=== PATIENT | female | born 1960 | race Caucasian/White ===

== ENCOUNTER 2018-06-09 18:43 | Emergency (ER) | payer MEDICARE, MEDICAID ==
[~2018-06-09] VITALS: Ht 157.5 cm; Wt 60.0 kg
[2018-06-09 20:24] LABS: BASOPHILS % (AUTO) 0.2 % (0-1); EOSINOPHILS # (AUTO) 0.2 X10'3 (0-0.9); EOSINOPHILS % (AUTO) 1.9 % (0-6); HEMATOCRIT 35.6 % (35.0-45.0); HEMOGLOBIN 11.6 g/dl (12.0-16.0); LYMPHOCYTES # (AUTO) 0.8 X10'3 (1.1-4.8); LYMPHOCYTES % (AUTO) 7.6 % (21-51); MEAN CORPUSCULAR HEMOGLOBIN 24.9 PG (27.0-31.0); MEAN CORPUSCULAR HGB CONC 32.5 % (33.0-36.5); MEAN CORPUSCULAR VOLUME 76.4 FL (78-98); MEAN PLATELET VOLUME 7.3 FL (7.4-10.4); MONOCYTES # (AUTO) 0.8 X10'3 (0-0.9); MONOCYTES % (AUTO) 7.2 % (2-12); NEUTROPHILS % (AUTO) 83.1 % (42-75); PLATELET COUNT 314 X10'3 (140-440); RED BLOOD COUNT 4.66 X10'6 (4.20-5.60); RED CELL DISTRIBUTION WIDTH 20.6 % (11.5-14.5); WHITE BLOOD COUNT 10.8 X10'3 (4.5-11.0)
[2018-06-09 20:34] LABS: PROTHROMBIN TIME 10.3 SECONDS (9.0-12.0)
[2018-06-09] MEDS ORDERED: pantoprazole 40 MG vial IV ONE (20:35)
[2018-06-09] MEDS ORDERED: normal saline 1000ML IV soln IVB ONE (20:35)
[2018-06-09] MEDS ORDERED: ondansetron/PF 4mg/2ml inj IV ONE (20:35)
[2018-06-09] MEDS ORDERED: ketorolac trometh. 30mg/ml inj. IV ONE (20:35)
[2018-06-09 20:56] LABS: AMYLASE 22 U/L (25-115)
[2018-06-09 20:58] LABS: ALANINE AMINOTRANSFERASE 12 U/L (12-78); ALBUMIN 3.3 G/DL (3.4-5.0); ALBUMIN/GLOBULIN RATIO 0.8 (1.1-1.5); ALKALINE PHOSPHATASE 168 IU/L (46-116); ANION GAP 8 (8-16); BILIRUBIN,TOTAL 1.2 MG/DL (0.1-1.0); BLOOD UREA NITROGEN 9 MG/DL (7-18); BUN/CREATININE RATIO 9.8 (6.6-38.0); CALCIUM 8.6 MG/DL (8.5-10.1); CHLORIDE 101 MMOL/L (99-107); CREATININE 0.92 MG/DL (0.40-0.90); GLUCOSE 128 MG/DL (70-104); LIPASE 130 U/L (73-393); POTASSIUM 3.3 MMOL/L (3.5-5.1); SODIUM 139 MMOL/L (135-145); TOTAL CARBON DIOXIDE 29.9 MMOL/L (24-32); TOTAL PROTEIN 7.7 G/DL (6.4-8.2); eGFR 63 ML/MIN
[2018-06-09 21:06] LABS: CLARITY,URINE CLEAR (Clear); COLOR,URINE YELLOW (Yellow); GLUCOSE, URINE NEGATIVE (Neg); KETONES,URINE TRACE mg/dl (Neg); LEUKOCYTE ESTERASE ,URINE SMALL (Neg); NITRITES, URINE NEGATIVE (Neg); OCCULT BLOOD,URINE NEGATIVE (Neg); PH,URINE 8.5 (4.8-8.0); PROTEIN,URINE 30 mg/dl (Neg); UROBILINOGEN,URINE 0.2 E.U/dL (0.2-1.0)
[2018-06-09 21:09] LABS: UA COLLECTION TYPE STRAIGHT CATH
[2018-06-09 21:09] LABS: ASPARTATE AMINO TRANSFERASE 27 U/L (10-37); ETHANOL < 0.010 GM/DL (0.0-0.010)
[2018-06-09 21:10] LABS: RBC,URINE 0-2 /HPF (0-2); URINE AMPHETAMINE SCREEN NEGATIVE (Neg); URINE BARBITUATE SCREEN NEGATIVE (Neg); URINE BENZODIAZEPINES SCREEN NEGATIVE (Neg); URINE CANNABINOID SCREEN NEGATIVE (Neg); URINE COCAINE SCREEN NEGATIVE (Neg); URINE METHADONE SCREEN NEGATIVE (Neg); URINE OPIATE SCREEN NEGATIVE (Neg); URINE PHENCYCLIDINE SCREEN NEGATIVE (Neg)
[2018-06-09 21:11] LABS: BACTERIA,URINE FEW /HPF (Neg); SQUAMOUS EPITHELIAL CELL,UR NONE SEEN /LPF (FEW)
[2018-06-09] MEDS ORDERED: normal saline 1000ml 1,000 ML IV ONE (22:50)
[2018-06-10] MEDS ORDERED: CefTRIAXone/D5W-Rocephin 1gm 50 ML IV ONE (02:35)
[2018-06-10 03:40] VITALS: BP 131/79
[2018-06-10] MEDS ORDERED: NITR100C6 PO (03:41)
[2018-06-10] MEDS ORDERED: ONDA8TAB9 PO (03:41)
== END 2018-06-10 03:48 | disposition home or self-care (01) ==
LOC: ER 18:44
DX: T62.91XA Toxic effect of unspecified noxious substance eaten as food, accidental (unintentional), initial encounter (principal); R11.10 Vomiting, unspecified; N39.0 Urinary tract infection, site not specified; Y92.89 Other specified places as the place of occurrence of the external cause
CPT/HCPCS: 36415; 71045; 74018; 76700; 80053; 80305; 80320; 81001; 82150; 83690; 85025; 85610; 87077; 87088; 87186; 93005; 96361; 96365; 96375; 99285; C9113; J0696; J1885; J2405; J7030

== ENCOUNTER 2018-06-25 01:30 | Emergency (ER) | payer MEDICARE, MEDICAID ==
[~2018-06-25] VITALS: Ht 157.5 cm; Wt 61.4 kg
[~2018-06-25 01:30] MED LIST: NITR100C6 PO; ONDA8TAB9 PO
[2018-06-25 02:16] LABS: BASOPHILS % (AUTO) 0.3 % (0-1); EOSINOPHILS # (AUTO) 0.2 X10'3 (0-0.9); EOSINOPHILS % (AUTO) 1.8 % (0-6); HEMATOCRIT 36.1 % (35.0-45.0); HEMOGLOBIN 11.6 g/dl (12.0-16.0); LYMPHOCYTES # (AUTO) 0.9 X10'3 (1.1-4.8); LYMPHOCYTES % (AUTO) 8.4 % (21-51); MEAN CORPUSCULAR HGB CONC 32.2 % (33.0-36.5); MEAN CORPUSCULAR VOLUME 77.6 FL (78-98); MEAN PLATELET VOLUME 7.9 FL (7.4-10.4); MONOCYTES # (AUTO) 0.6 X10'3 (0-0.9); MONOCYTES % (AUTO) 5.5 % (2-12); NEUTROPHILS # (AUTO) 9.1 X10'3 (1.8-7.7); PLATELET COUNT 333 X10'3 (140-440); RED BLOOD COUNT 4.65 X10'6 (4.20-5.60); RED CELL DISTRIBUTION WIDTH 19.1 % (11.5-14.5); WHITE BLOOD COUNT 10.8 X10'3 (4.5-11.0)
[2018-06-25 02:31] LABS: ALANINE AMINOTRANSFERASE 12 U/L (12-78); ALBUMIN 3.4 G/DL (3.4-5.0); ALBUMIN/GLOBULIN RATIO 0.8 (1.1-1.5); ALKALINE PHOSPHATASE 146 IU/L (46-116); ANION GAP 5 (8-16); ASPARTATE AMINO TRANSFERASE 28 U/L (10-37); BILIRUBIN,TOTAL 1.6 MG/DL (0.1-1.0); BLOOD UREA NITROGEN 6 MG/DL (7-18); BUN/CREATININE RATIO 7.4 (6.6-38.0); CHLORIDE 100 MMOL/L (99-107); CREATININE 0.81 MG/DL (0.40-0.90); GLUCOSE 121 MG/DL (70-104); POTASSIUM 3.2 MMOL/L (3.5-5.1); SODIUM 136 MMOL/L (135-145); TOTAL CARBON DIOXIDE 30.9 MMOL/L (24-32); TOTAL PROTEIN 7.8 G/DL (6.4-8.2); eGFR 73 ML/MIN
[2018-06-25 02:58] LABS: LIPASE 220 U/L (73-393)
[2018-06-25 03:20] LABS: ANISOCYTOSIS 2+; PLATELET ESTIMATE NORMAL
[2018-06-25 03:21] LABS: POLYCHROMASIA FEW
[2018-06-25 03:22] LABS: STOMATOCYTES 1+
[2018-06-25 03:27] LABS: CLARITY,URINE SLIGHTLY CLOUDY (Clear); COLOR,URINE YELLOW (Yellow); GLUCOSE, URINE NEGATIVE (Neg); KETONES,URINE TRACE mg/dl (Neg); LEUKOCYTE ESTERASE ,URINE TRACE (Neg); NITRITES, URINE NEGATIVE (Neg); OCCULT BLOOD,URINE NEGATIVE (Neg); PH,URINE >=9.0 (4.8-8.0); PROTEIN,URINE 30 mg/dl (Neg)
[2018-06-25 03:29] LABS: UA COLLECTION TYPE CLN CATCH MIDSTREAM
[2018-06-25 03:32] LABS: MUCUS STRANDS MODERATE /LPF (Neg); SQUAMOUS EPITHELIAL CELL,UR MODERATE /LPF (FEW)
[2018-06-25 03:33] LABS: BACTERIA,URINE FEW /HPF (Neg); RBC,URINE 0-2 /HPF (0-2); WBC,URINE 0-4 /HPF (0-4)
[2018-06-25] MEDS ORDERED: ondansetron/PF 4mg/2ml inj IV ONE (03:35)
[2018-06-25] MEDS ORDERED: normal saline 1000ML IV soln IVB ONE (03:35)
[2018-06-25] MEDS: morphine 4 MG/ML inj SYRINge IV PRN ×2 (03:48→04:25)
[2018-06-25] MEDS ORDERED: iohexol 300mg/ml 100ml inj. ONE (03:48)
[2018-06-25] MEDS ORDERED: potassium Cl 20 mEq SR tablet PO STA (04:12)
[2018-06-25] MEDS ORDERED: HYDR-3965 PO (05:45)
[2018-06-25] MEDS ORDERED: ONDA4TAB9 PO (05:45)
[2018-06-25 06:40] VITALS: BP 147/81
[2018-06-25] MEDS ORDERED: mag hydrox/Alum hydrox/simeth 30ml oral suspension PO ONE (07:05)
[2018-06-26] MEDS ORDERED: LISI-600 PO (10:27)
[2018-06-26] MEDS ORDERED: MELO-100 PO (10:27)
== END 2018-06-25 08:05 | disposition home or self-care (01) ==
LOC: ER 01:30
DX: R10.84 Generalized abdominal pain (principal); E87.6 Hypokalemia; Z98.890 Other specified postprocedural states; Z79.899 Other long term (current) drug therapy
CPT/HCPCS: 36415; 74177; 80053; 81001; 83690; 85025; 87088; 96361; 96374; 96375; 96376; 99285; J2270; J2405; J7030; Q9967

== ENCOUNTER 2018-07-08 12:05 | Inpatient (IN) | payer MEDICARE, MEDICAID ==
[2018-07-08] VITALS (13 sets, daily range): BP systolic 119–187; BP diastolic 76–97
[~2018-07-08] VITALS: Ht 157.5 cm; Wt 61.4 kg
[~2018-07-08 12:05] MED LIST changes: +HYDR-569 PO; +LISI-600 PO; -NITR100C6 PO; -ONDA8TAB9 PO; +PANT-47 PO; +SUCR1TAB34 PO
[2018-07-08] MEDS ORDERED: diphenhydrAMINE 50 mg/ml inj IV ONE (12:30)
[2018-07-08] MEDS ORDERED: normal saline 1000ML IV soln IVB ONE (12:30)
[2018-07-08] MEDS ORDERED: pantoprazole 40 MG vial IV ONE (12:30)
[2018-07-08] MEDS: morphine 4 MG/ML inj SYRINge IV PRN ×2 (12:39→15:52)
[2018-07-08 12:43] LABS: BASOPHILS % (AUTO) 0.2 % (0-1); EOSINOPHILS # (AUTO) 0.1 X10'3 (0-0.9); EOSINOPHILS % (AUTO) 0.9 % (0-6); HEMATOCRIT 36.9 % (35.0-45.0); HEMOGLOBIN 11.9 g/dl (12.0-16.0); LYMPHOCYTES # (AUTO) 0.9 X10'3 (1.1-4.8); MEAN CORPUSCULAR HEMOGLOBIN 24.7 PG (27.0-31.0); MEAN CORPUSCULAR HGB CONC 32.2 % (33.0-36.5); MEAN CORPUSCULAR VOLUME 76.8 FL (78-98); MEAN PLATELET VOLUME 7.5 FL (7.4-10.4); MONOCYTES # (AUTO) 0.7 X10'3 (0-0.9); MONOCYTES % (AUTO) 6.5 % (2-12); NEUTROPHILS # (AUTO) 9.5 X10'3 (1.8-7.7); NEUTROPHILS % (AUTO) 84.4 % (42-75); PLATELET COUNT 419 X10'3 (140-440); RED CELL DISTRIBUTION WIDTH 18.9 % (11.5-14.5); WHITE BLOOD COUNT 11.2 X10'3 (4.5-11.0)
[2018-07-08 12:53] LABS: PROTHROMBIN TIME 10.4 SECONDS (9.0-12.0)
[2018-07-08 12:59] LABS: ALANINE AMINOTRANSFERASE 15 U/L (12-78); ALBUMIN 3.4 G/DL (3.4-5.0); ALBUMIN/GLOBULIN RATIO 0.9 (1.1-1.5); ALKALINE PHOSPHATASE 127 IU/L (46-116); ANION GAP 7 (8-16); ASPARTATE AMINO TRANSFERASE 20 U/L (10-37); BILIRUBIN,TOTAL 0.8 MG/DL (0.1-1.0); BLOOD UREA NITROGEN 5 MG/DL (7-18); BUN/CREATININE RATIO 5.3 (6.6-38.0); CHLORIDE 100 MMOL/L (99-107); CREATININE 0.95 MG/DL (0.40-0.90); GLUCOSE 122 MG/DL (70-104); LIPASE 195 U/L (73-393); POTASSIUM 3.1 MMOL/L (3.5-5.1); SODIUM 137 MMOL/L (135-145); TOTAL CARBON DIOXIDE 29.7 MMOL/L (24-32); TOTAL PROTEIN 7.4 G/DL (6.4-8.2); eGFR 61 ML/MIN
[2018-07-08 13:05] LABS: CALCIUM 8.7 MG/DL (8.5-10.1)
[2018-07-08] MEDS: potassium 10mEq/100ml NS w/LIDOcaine (10mg/bag) IV SCH ×2 (13:21→14:32)
[2018-07-08 14:41] LABS: ANISOCYTOSIS 2+; PLATELET ESTIMATE NORMAL; STOMATOCYTES FEW
[2018-07-08 14:42] LABS: ELLIPTOCYTES FEW
[2018-07-08 14:57] LABS: URINE HCG NEGATIVE (NEG)
[2018-07-08 15:08] LABS: CLARITY,URINE CLEAR (Clear); COLOR,URINE STRAW (Yellow); GLUCOSE, URINE NEGATIVE (Neg); KETONES,URINE TRACE mg/dl (Neg); LEUKOCYTE ESTERASE ,URINE NEGATIVE (Neg); NITRITES, URINE NEGATIVE (Neg); OCCULT BLOOD,URINE NEGATIVE (Neg); PH,URINE >=9.0 (4.8-8.0); PROTEIN,URINE NEGATIVE (Neg); UROBILINOGEN,URINE 0.2 E.U/dL (0.2-1.0)
[2018-07-08 15:17] LABS: UA COLLECTION TYPE CLN CATCH MIDSTREAM
[2018-07-08] MEDS ORDERED: ONDA4TAB12 PO (16:00)
[2018-07-08] MEDS ORDERED: ondansetron/PF 4mg/2ml inj IV PRN (16:15)
[2018-07-08] MEDS ORDERED: mag hydrox/Alum hydrox/simeth 30ml oral suspension PO PRN (16:15)
[2018-07-08] MEDS ORDERED: morphine 4 MG/ML inj SYRINge IV PRN ×2 (16:15)
[2018-07-08] MEDS ORDERED: acetaminophen 325mg tablet PO PRN (16:15)
[2018-07-08] MEDS ORDERED: magnesium hydroxide 30ml (MOM) UD suspension PO PRN (16:15)
[2018-07-08] MEDS ORDERED: fentaNYL/PF 50MCG/1 ML 2ML syringe ONE (16:52)
[2018-07-08] MEDS ORDERED: LIDOcaine Viscous 15ml cup ONE (16:52)
[2018-07-08] MEDS ORDERED: MIDAZolam 5mg/5ml vial ONE (16:52)
[2018-07-08] MEDS: normal saline 1000ml 1,000 ML IV SCH (20:27)
[2018-07-09] VITALS: BP 137/79
[2018-07-09] MEDS: normal saline 1000ml 1,000 ML IV SCH ×3 (02:15→17:13)
[2018-07-09 05:34] LABS: BASOPHILS % (AUTO) 0.5 % (0-1); EOSINOPHILS # (AUTO) 0.4 X10'3 (0-0.9); EOSINOPHILS % (AUTO) 4.9 % (0-6); HEMATOCRIT 30.7 % (35.0-45.0); HEMOGLOBIN 9.9 g/dl (12.0-16.0); LYMPHOCYTES # (AUTO) 1.4 X10'3 (1.1-4.8); LYMPHOCYTES % (AUTO) 16.4 % (21-51); MEAN CORPUSCULAR HEMOGLOBIN 25.1 PG (27.0-31.0); MEAN CORPUSCULAR HGB CONC 32.2 % (33.0-36.5); MEAN CORPUSCULAR VOLUME 78.1 FL (78-98); MEAN PLATELET VOLUME 7.6 FL (7.4-10.4); MONOCYTES # (AUTO) 0.6 X10'3 (0-0.9); MONOCYTES % (AUTO) 7.7 % (2-12); NEUTROPHILS # (AUTO) 5.9 X10'3 (1.8-7.7); NEUTROPHILS % (AUTO) 70.5 % (42-75); PLATELET COUNT 320 X10'3 (140-440); RED BLOOD COUNT 3.93 X10'6 (4.20-5.60); RED CELL DISTRIBUTION WIDTH 18.5 % (11.5-14.5); WHITE BLOOD COUNT 8.4 X10'3 (4.5-11.0)
[2018-07-09 05:57] LABS: ALANINE AMINOTRANSFERASE 11 U/L (12-78); ALBUMIN 2.5 G/DL (3.4-5.0); ALBUMIN/GLOBULIN RATIO 0.8 (1.1-1.5); ALKALINE PHOSPHATASE 95 IU/L (46-116); ANION GAP 7 (8-16); ASPARTATE AMINO TRANSFERASE 17 U/L (10-37); BILIRUBIN,TOTAL 1.1 MG/DL (0.1-1.0); BLOOD UREA NITROGEN 4 MG/DL (7-18); BUN/CREATININE RATIO 4.3 (6.6-38.0); CALCIUM 7.7 MG/DL (8.5-10.1); CHLORIDE 105 MMOL/L (99-107); CREATININE 0.92 MG/DL (0.40-0.90); GLUCOSE 100 MG/DL (70-104); POTASSIUM 3.5 MMOL/L (3.5-5.1); SODIUM 136 MMOL/L (135-145); TOTAL CARBON DIOXIDE 23.9 MMOL/L (24-32); TOTAL PROTEIN 5.6 G/DL (6.4-8.2); eGFR 63 ML/MIN
[2018-07-09 07:20] VITALS: BP 132/77
[2018-07-09] MEDS ORDERED: pantoprazole 40 MG vial IV SCH (08:00)
[2018-07-09 09:24] LABS: PLATELET ESTIMATE NORMAL
[2018-07-09 09:25] LABS: ANISOCYTOSIS 2+; MICROCYTOSIS 1+; POIKILOCYTOSIS FEW; POLYCHROMASIA FEW
[2018-07-09] MEDS: lisinopril 5mg tablet PO SCH (09:38)
[2018-07-09] MEDS: enoxaparin 40mg/0.4ml syringe SUBCUT SCH (09:55)
[2018-07-09] MEDS: diatr meglu/diatrizoate 30ml oral sol.-(3 dose) bottle PO SCH ×3 (10:48→16:58)
[2018-07-09 11:27] VITALS: BP 140/67
[2018-07-09] MEDS: sucralfate 1 gm tablet PO SCH ×2 (12:00→17:00)
[2018-07-09 16:37] LABS: H PYLORI ANTIBODY NEGATIVE (Neg)
[2018-07-09] MEDS: pantoprazole 40MG/NS 100ML BAG 100 ML IV SCH ×2 (16:47→21:13)
[2018-07-09 18:00] VITALS: BP 146/70
[2018-07-10] VITALS: BP 137/74
[2018-07-10] MEDS: pantoprazole 40MG/NS 100ML BAG 100 ML IV SCH ×6 (01:09→23:49)
[2018-07-10] MEDS: normal saline 1000ml 1,000 ML IV SCH ×2 (02:30→12:41)
[2018-07-10 05:52] LABS: BASOPHILS # (AUTO) 0.1 X10'3 (0-0.2); EOSINOPHILS # (AUTO) 0.3 X10'3 (0-0.9); EOSINOPHILS % (AUTO) 4.2 % (0-6); HEMOGLOBIN 10.5 g/dl (12.0-16.0); LYMPHOCYTES # (AUTO) 1.4 X10'3 (1.1-4.8); LYMPHOCYTES % (AUTO) 16.7 % (21-51); MEAN CORPUSCULAR VOLUME 78.8 FL (78-98); MEAN PLATELET VOLUME 7.9 FL (7.4-10.4); MONOCYTES # (AUTO) 0.7 X10'3 (0-0.9); MONOCYTES % (AUTO) 8.2 % (2-12); NEUTROPHILS # (AUTO) 5.7 X10'3 (1.8-7.7); NEUTROPHILS % (AUTO) 69.9 % (42-75); PLATELET COUNT 344 X10'3 (140-440); RED BLOOD COUNT 4.06 X10'6 (4.20-5.60); RED CELL DISTRIBUTION WIDTH 17.7 % (11.5-14.5); WHITE BLOOD COUNT 8.2 X10'3 (4.5-11.0)
[2018-07-10 06:52] LABS: ALANINE AMINOTRANSFERASE 14 U/L (12-78); ALBUMIN 2.6 G/DL (3.4-5.0); ALBUMIN/GLOBULIN RATIO 0.8 (1.1-1.5); ALKALINE PHOSPHATASE 91 IU/L (46-116); ANION GAP 11 (8-16); ASPARTATE AMINO TRANSFERASE 19 U/L (10-37); BLOOD UREA NITROGEN 2 MG/DL (7-18); BUN/CREATININE RATIO 2.5 (6.6-38.0); CALCIUM 8.3 MG/DL (8.5-10.1); CHLORIDE 106 MMOL/L (99-107); CREATININE 0.81 MG/DL (0.40-0.90); GLUCOSE 86 MG/DL (70-104); POTASSIUM 3.3 MMOL/L (3.5-5.1); SODIUM 139 MMOL/L (135-145); TOTAL CARBON DIOXIDE 22.1 MMOL/L (24-32); eGFR 73 ML/MIN
[2018-07-10 07:04] VITALS: BP 134/67
[2018-07-10] MEDS: lisinopril 5mg tablet PO SCH (07:56)
[2018-07-10] MEDS: sucralfate 1 gm tablet PO SCH ×3 (07:56→17:21)
[2018-07-10] MEDS: enoxaparin 40mg/0.4ml syringe SUBCUT SCH (07:57)
[2018-07-10 10:10] LABS: C DIFF ANTIGEN NEGATIVE (NEGATIVE); C DIFF SPECIMEN=DIARRHEA? ACCEPTABLE; C DIFFICILE TOXINS A&B NEGATIVE (Neg)
[2018-07-10 12:01] VITALS: BP 103/58
[2018-07-10] MEDS ORDERED: potassium Cl 40MEQ/NS 500ml 500 ML IV PRN ×2 (12:30)
[2018-07-10] MEDS ORDERED: magnesium Cl slow-release 64mg tablet PO PRN (12:30)
[2018-07-10] MEDS ORDERED: magnesium 1gm/100ml D5W IVPB 100 ML IV PRN (12:30)
[2018-07-10] MEDS ORDERED: magnesium 4gm in 100ml NS 100 ML IV PRN (12:30)
[2018-07-10] MEDS ORDERED: potassium Cl 20 mEq SR tablet PO PRN ×2 (12:30)
[2018-07-10] MEDS ORDERED: LIDOcaine 1% 30ml vial 5 ML in potassium Cl 40MEQ/NS 500ml 500 ML IV ONE (12:35)
[2018-07-10] MEDS: piperacillin/tazo 3.375gm/50ml 50 ML IV SCH (17:21)
[2018-07-10 18:30] VITALS: BP 123/62
[2018-07-11] VITALS: BP 133/70
[2018-07-11] MEDS: piperacillin/tazo 3.375gm/50ml 50 ML IV SCH ×2 (00:45→07:35)
[2018-07-11] MEDS: normal saline 1000ml 1,000 ML IV SCH (04:22)
[2018-07-11 05:27] LABS: BASOPHILS # (AUTO) 0.1 X10'3 (0-0.2); BASOPHILS % (AUTO) 0.9 % (0-1); EOSINOPHILS # (AUTO) 0.4 X10'3 (0-0.9); EOSINOPHILS % (AUTO) 6.1 % (0-6); HEMOGLOBIN 10.5 g/dl (12.0-16.0); LYMPHOCYTES # (AUTO) 1.1 X10'3 (1.1-4.8); LYMPHOCYTES % (AUTO) 16.5 % (21-51); MEAN CORPUSCULAR HEMOGLOBIN 25.9 PG (27.0-31.0); MEAN CORPUSCULAR HGB CONC 32.9 % (33.0-36.5); MEAN CORPUSCULAR VOLUME 78.8 FL (78-98); MEAN PLATELET VOLUME 7.5 FL (7.4-10.4); MONOCYTES # (AUTO) 0.8 X10'3 (0-0.9); MONOCYTES % (AUTO) 10.8 % (2-12); NEUTROPHILS # (AUTO) 4.5 X10'3 (1.8-7.7); NEUTROPHILS % (AUTO) 65.7 % (42-75); PLATELET COUNT 343 X10'3 (140-440); RED BLOOD COUNT 4.07 X10'6 (4.20-5.60); RED CELL DISTRIBUTION WIDTH 17.8 % (11.5-14.5); WHITE BLOOD COUNT 6.9 X10'3 (4.5-11.0)
[2018-07-11 05:56] LABS: ALANINE AMINOTRANSFERASE 9 U/L (12-78); ALBUMIN 2.7 G/DL (3.4-5.0); ALBUMIN/GLOBULIN RATIO 0.8 (1.1-1.5); ALKALINE PHOSPHATASE 92 IU/L (46-116); ANION GAP 11 (8-16); ASPARTATE AMINO TRANSFERASE 16 U/L (10-37); CALCIUM 8.7 MG/DL (8.5-10.1); CHLORIDE 105 MMOL/L (99-107); GLUCOSE 107 MG/DL (70-104); POTASSIUM 3.6 MMOL/L (3.5-5.1); SODIUM 139 MMOL/L (135-145); TOTAL CARBON DIOXIDE 23.3 MMOL/L (24-32); TOTAL PROTEIN 6.1 G/DL (6.4-8.2)
[2018-07-11 06:06] LABS: BLOOD UREA NITROGEN 2 MG/DL (7-18); BUN/CREATININE RATIO 2.2 (6.6-38.0); CREATININE 0.92 MG/DL (0.40-0.90); eGFR 63 ML/MIN
[2018-07-11 07:18] VITALS: BP 144/69
[2018-07-11] MEDS: sucralfate 1 gm tablet PO SCH ×2 (07:34→12:45)
[2018-07-11] MEDS: lisinopril 5mg tablet PO SCH (07:34)
[2018-07-11] MEDS: enoxaparin 40mg/0.4ml syringe SUBCUT SCH (07:35)
[2018-07-11 11:00] VITALS: BP 134/71
[2018-07-11] MEDS: pantoprazole 40MG/NS 100ML BAG 100 ML IV SCH (12:45)
== END 2018-07-11 16:20 | disposition left against medical advice (07) | DRG 384 ==
LOC: ER 12:06 → ED HOLD 16:15 → SUR 3N 18:36
PROVIDERS: ADMIT Family Medicine; ATTEND Family Medicine
PROC: 0D778ZZ Dilation of Stomach, Pylorus, Via Natural or Artificial Opening Endoscopic (ICD-10-PCS; principal; 2018-07-08)
PROC: 0DB58ZX Excision of Esophagus, Via Natural or Artificial Opening Endoscopic, Diagnostic (ICD-10-PCS; 2018-07-08)
PROC: 0DB78ZX Excision of Stomach, Pylorus, Via Natural or Artificial Opening Endoscopic, Diagnostic (ICD-10-PCS; 2018-07-08)
DX: K25.9 Gastric ulcer, unspecified as acute or chronic, without hemorrhage or perforation (principal); K31.1 Adult hypertrophic pyloric stenosis; I10 Essential (primary) hypertension; K29.90 Gastroduodenitis, unspecified, without bleeding; M19.90 Unspecified osteoarthritis, unspecified site; K21.0 Gastro-esophageal reflux disease with esophagitis; K26.9 Duodenal ulcer, unspecified as acute or chronic, without hemorrhage or perforation; Z53.21 Procedure and treatment not carried out due to patient leaving prior to being seen by health care provider; Z79.899 Other long term (current) drug therapy
CPT/HCPCS: 36415; 43239; 74018; 74176; 76700; 76856; 80053; 81003; 81025; 83690; 85025; 85610; 86677; 87070; 87324; 87449; 93005; A4620; C1726; C9113; G0500; J1200; J1650; J2250; J2270; J2543; J3010; J3480; J3490; J7030; Q9963